=== PATIENT | male | born 1945 | race American Indian/Alaskan Native ===

== ENCOUNTER 2021-01-04 08:00 | Outpatient (CLI) | payer OTHER | END 2021-01-04 08:30 | disposition home or self-care (01) | LOC: PPH VACUNA 08:00 | DX: Z23 Encounter for immunization (principal) ==

== ENCOUNTER 2021-04-05 06:35 | Outpatient (CLI) | payer OTHER | END 2021-04-05 07:00 | disposition home or self-care (01) | LOC: RAD 06:35 | PROVIDERS: ATTEND Orthopaedic Surgery Adult Reconstructive Orthopaedic Surgery | DX: M79.671 Pain in right foot (principal); M79.672 Pain in left foot ==

== ENCOUNTER → 2023-05-01 | Outpatient (CLI) | payer OTHER | END | disposition home or self-care (01) | LOC: MRI 11:47 | DX: M75.111 Incomplete rotator cuff tear or rupture of right shoulder, not specified as traumatic (principal) | CPT/HCPCS: 73221 ==

== ENCOUNTER 2023-06-25 08:58 | Outpatient (CLI) | payer OTHER | END 2023-06-25 14:31 | disposition home or self-care (01) | LOC: SONOGRAMA 08:58 | PROVIDERS: ATTEND Family Medicine | DX: R10.84 Generalized abdominal pain (principal) ==

== ENCOUNTER 2024-01-10 06:23 | Outpatient (CLI) | payer OTHER | END 2024-01-10 14:24 | disposition home or self-care (01) | LOC: TOM 06:23 | PROVIDERS: ATTEND Family Medicine | DX: C61 Malignant neoplasm of prostate (principal); R10.84 Generalized abdominal pain | CPT/HCPCS: 74178; Q9965 ==

== ENCOUNTER 2024-10-24 11:43 | Outpatient (CLI) | payer OTHER | END 2024-10-24 12:00 | disposition home or self-care (01) | LOC: MRI 11:43 | PROVIDERS: ATTEND Family Medicine | DX: M54.16 Radiculopathy, lumbar region (principal); M54.17 Radiculopathy, lumbosacral region | CPT/HCPCS: 72148 ==

== ENCOUNTER 2025-02-05 11:25 | Outpatient (CLI) | payer OTHER | END 2025-02-11 08:15 | disposition home or self-care (01) | LOC: MRI 11:25 | PROVIDERS: ATTEND Family Medicine | DX: M54.16 Radiculopathy, lumbar region (principal); M54.17 Radiculopathy, lumbosacral region | CPT/HCPCS: 72148 ==